=== PATIENT | male | born 1955 | race Caucasian/White ===

== ENCOUNTER 2025-02-21 07:22 | Outpatient (AMB) | payer MEDICARE, OTHER, SELFPAY ==
--- OUTSIDE RECORDS SUMMARY | 2025-02-21 07:24 | XMS_ITS ---
Author Name [facility] Organization Unknown Care Team Organization Name Specialty Phone Email Start Date End Da te [facility] BRIANA GOLDEN Primary Care 02/23/2023 10/31/19 24
--- OUTSIDE RECORDS SUMMARY | 2025-02-21 07:24 | XMS_ITS | Clinical Summary ---
Author Organization [facility] Address [address] [place] [address] Phone Care Team Providers Care Grinder Setup Operator Name Role Phone Isadora Wayne Primary Care Provider + Allergies No known active allergies Medications diclofenac (VOLTAREN) 1 % topical gel Apply 2 g topically 3 (three) times a day if needed (left shoulder pain). 4 Active cholecalciferol (VITAMIN D-3) 50 mcg (2,000 unit) capsule Take 1 capsule (2,000 Units total) by mouth 1 (one) time each day. 4 Active VITAMIN B COMPLEX ORAL Take 1 tablet by mouth 1 (one) time each day. Patient switched from B12 to B Compled Active miscellaneous medical supply misc Inhale 1 Units into the lungs at bedtime. Active polyethylene glycol (MIRALAX) 17 gram packet MIX 1 PACKET IN 8 OUNCES OF LIQUID AND DRINK ONCE DAILY. 6 Active acetaminophen (TYLENOL) 500 mg tablet Take 2 tablets (1,000 mg total) by mouth at bedtime as needed. Active gabapentin (NEURONTIN) 300 mg capsule Take 1 capsule (300 mg total) by mouth 3 (three) times a day. Take 1-3 caps nightly as needed 90 capsule 3 5 Active acyclovir (ZOVIRAX) 400 mg tabletIndications :Oral herpes Take 1 tablet (400 mg total) by mouth every 8 (eight) hours. 15 tablet 5 Active dilTIAZem CD (CARDIZEM CD) 120 mg 24 hr capsule TAKE 1 TABLET BY MOUTH DAILY 90 capsule 1 5 Active coenzyme Q-10 30 mg capsuleIndication s:Atrial fibrillation, unspecified type (CMS/HCC V24, CMS/HCC V28),Paroxysmal atrial fibrillation (CMS/HCC V24, CMS/HCC V28) Take 1 capsule (30 mg total) by mouth 1 (one) time each day. Active magnesium oxide (MAG-OX) 400 mg magnesium tabletIndications :Atrial fibrillation, unspecified type (CMS/HCC V24, CMS/HCC V28),Paroxysmal atrial fibrillation (CMS/HCC V24, CMS/HCC V28) Take 1 tablet (400 mg total) by mouth 1 (one) time each day. Active Active Problems Problem Noted Date Diagnosed Date Spinal stenosis, lumbar region with neurogenic c laudication 02/13/2024 Vitamin B 12 deficiency 09/04/2022 Vitamin D deficiency 09/04/2022 Bradycardia 08/17/2021 SOB (shortness of breath) 08/17/2021 Neurogenic claudication 05/18/2018 Pulmonary nodules 12/14/2017 Allergic rhinitis 07/05/2016 Hypertension 07/05/2016 LESTER (obstructive sleep apnea) 07/05/2016 Paroxysmal atrial fibrillation 07/05/2016 Assessment & Plan (12/27/2024 11:00 PM EDT): Orders: ECG 12 lead Thyroid nodule 07/05/2016 Overview (02/13/2024): thyroid US 02/04/20 stable nodule unchanged compared 2016 Diverticulosis 01/21/2016 Internal hemorrhoids 01/21/2016 Encounters Date Type Department Care Team Description 12/26/2024 2:45 PM EDT Office Visit [facility] [address] [place] [address] Shaneka Diaz MD Atrial fibrillation, unspecified type (CMS/HCC V24, CMS/HCC V28) (Primary Dx); Paroxysmal atrial fibrillation (CMS/HCC V24, CMS/HCC V28) from Last 3 Months Immunizations Immunization Administration Dates Next Due Pneumococcal conjugate 20 va lent (Prevnar 20, PCV 20) 2mo and older 03/05/2022 Surgical History Surgery Date Site/Laterality Comments LUMBAR LAMINECTOMY 2016 PROCEDURE: HISTORICAL LUMB LAMINECTOMY; COMMENT: Dr. Cee NECK SURGERY -2010 PROCEDURE: HISTORICAL NECK SURGERY; COMMENT: Dr. Estes APPENDECTOMY PROCEDURE: HISTORICAL APPENDECTOMY HERNIA REPAIR Right PROCEDURE: HISTORICAL HERNIA REPAIR/ING Medical History Medical History Date Comments Allergic rhinitis 07/05/2016 DX:Allergic rh initis Diverticulosis 01/21/2016 DX:Diverticulosi s Hypertension 07/05/2016 DX:Hypertension Internal hemorrhoids 01/21/2016 DX:Internal hemorrhoids Obstructive sleep apnea 07/05/2016 DX:Obstr uctive sleep apnea Paroxysmal atrial fibrillati on (CMS/HCC V24, CMS/HCC V28) 07/05/2016 DX:Paroxysmal atrial fibril lation (HCC) Pulmonary nodules 12/14/2017 DX:Pulmonary n odules Thyroid nodule 07/05/2016 DX:Thyroid nodul e; COMMENT: thyroid US 02/04/20 stable nodule unchanged compared 2015 Spinal stenosis, lumbar estelita on with neurogenic claudication DX:Spinal stenosis, lumbar r egion with neurogenic claudication Vitamin D deficiency DX:Vitamin D deficiency Vitamin B 12 deficiency DX:Vitam in B 12 deficiency Family History Medical History Relation Name Comments Other: squamous cancer Father Heart failure Mother Relation Name Status Comments Brother 1 Alive Brother 2 Alive Brother 3 Alive Father Mother Social History Tobacco Use Types Packs/Day Years Used Date Smoking Tobacco: Former Smokeless Tobacco: Never Alcohol Use Standard Drinks/Week Comments Yes 0 (1 standard drink = 0.6 oz pur e alcohol) Housing Instability Answer Date Recorde d Are you worried that in the next 2 months you may not have stable housing? No 04/10/2024 Food Access & Nutrition Answer Date Rec orded Do you have access to a vari ety of food including fruits and vegetables? Yes 04/10/2024 Access to Healthcare Answer Date Record ed Within the last 3 months, сергей sam many times did you visit the emergency department for your medical care? 0 04/10/2024 Health Literacy Answer Date Recorded How often do you need to hav e someone help you when you read instructions, pamphlets, or other written material from your doctor or pharmacy? Never 04/10/2024 Caregiver: How often do you need to have someone help you when you read instructions, pamphlets, or other written material from your doctor or pharmacy? Not on file 04/10/2024 Financial Risk Answer Date Recorded How hard is it for you to pa y for the very basics like food, housing, medical care, and air conditioning / heating? Not very hard 04/10/2024 Transportation Answer Date Recorded Has the lack of transportati on kept you from meetings, work, or from getting things needed for daily living? No Has the lack of transportati on kept you from medical appointments or from getting medications? No 04/10/2024 Social Isolation Answer Date Recorded How often do you feel lonely or isolated from ose around you? Never 04/10/2024 Food Risk Answer Date Recorded Within the past 12 months we worried whether our food would run out before we got money to buy more. Never true 04/10/2024 Within the past 12 months th e food we bought just didn't last and we didn't have money to get more. Never true 04/10/2024 Dependent Care Answer Date Recorded Do you need help finding or paying for care for your loved ones. For example, child psychologist or elderly care for an older adult? No 04/10/2024 Education Answer Date Recorded Do you think completing more education or training, like finishing a GED, going to college, or learning a trade, would be helpful for you? No 04/10/2024 Employment and Income Answer Date Recor ded During the last four weeks, have you been actively looking for work? No 04/10/2024 Living Situation Answer Date Recorded What is your living situation? Unrecognized valu e 04/10/2024 Sex and Gender Information Value Date Recorded Sex Assigned at Not on file Legal Sex Male 4:58 AM EST Gender Identity Not on file Sexual Orientation Not on file Last Filed Vital Signs Vital Sign Reading Time Taken Comments Blood Pressure 120/62 12/26/2024 3:07 PM EDT Pulse 53 12/26/2024 3:07 PM EDT Temperature 36.6 C (97.8 F) 10/29/2024 9:23 AM EDT Respiratory Rate - - Oxygen Saturation 96% 12/26/2024 3:07 PM EDT Inhaled Oxygen Concentration - - Weight 90.7 kg (200 lb) 12/26/2024 3:07 PM EDT Height 193 cm (6' 4 ) 12/26/2024 3:07 PM EDT Body Mass Index 24.34 12/26/2024 3:07 PM EDT Plan of Treatment Upcoming Encounters Date Type Department Care Team (Late st Contact Info) Description 05/02/2025 9:00 AM EST Office Visit Internal Medicine - [place] [address] [place] [address] Isadora Wayne, PA [address] [place] [address] Health Maintenance Due Date Last Done Comments Colorectal Cancer Screening: Colonoscopy 1955 Abdominal Aortic Aneurysm (AAA) Screen 02/20/2022 Falls Risk Assessment 02/20/2022 Hepatitis C Screening 02/20/2022 Medicare Annual Wellness Visit 02/20/2022 COVID-19 Vaccine ( season) 2024 11/28/2023, 02/19/2023, 12/21/2021, Additional history exists Influenza Vaccine (#1) 2024 , 02/19/2023, 12/21/2021, Additional history exists Social Influencers of Health Screening 04/10/2025 04/10/2024 Hypertension/CHF/CAD Annual BMP Blood Test 10/29/2025 10/29/2024, 04/16/2024, 04/11/2023 Cholesterol Screening (Lipid Panel) 04/16/2029 04/16/2024, 04/11/2023 DTaP,Tdap,and Td Vaccines (3 - Td or Tdap) 05/17/2029 05/18/2019, 01/13/2014 RSV Immunization Adult Patients (1 - 1-dose 75+ series) 2029 Zoster Vaccines Completed 10/03/2020, 07/31/2020 Pneumococcal Vaccine: 50+ Years Completed 03/05/2022 Depression Screening Completed 04/10/2024 HIB Vaccines Aged Out No longer eligi ble based on patient's age to complete this topic HPV Vaccines Aged Out No longer eligi ble based on patient's age to complete this topic Hepatitis A Vaccines Aged Out No long er eligible based on patient's age to complete this topic Hepatitis B Vaccines Aged Out No long er eligible based on patient's age to complete this topic IPV Vaccines Aged Out No longer eligi ble based on patient's age to complete this topic MMR Vaccines Aged Out No longer eligi ble based on patient's age to complete this topic Meningococcal ACWY Vaccine Aged Out N o longer eligible based on patient's age to complete this topic Meningococcal B Vaccine Aged Out No l onger eligible based on patient's age to complete this topic RSV Immunization Patients Under 20 months Aged Out No longer eligible based on patient's age to complete this topic Varicella Vaccines Aged Out No longer eligible based on patient's age to complete this topic Procedures Procedure Name Priority Date/Time Associated Diagnosis Comments ECG 12-LEAD Routine 12/26/2024 3:12 PM EDT Atrial fibrillation, unspecified type (CMS/HCC V24, CMS/HCC V28) Paroxysmal atrial fibrillation (CMS/HCC V24, CMS/HCC V28) COMPREHENSIVE METABOLIC PANEL Routine 10/29/2024 9:52 AM EDT Primary hypertension LIPID PANEL WITH REFLEX TO DIRECT LDL Routine 04/16/2024 3:44 PM EST Routine physical examination from Last 3 Months or Most Recently Relevant to Health Maintenance Results * ECG 12 lead (12/26/2024 3:12 PM EDT) Ventricular Rate ECG 53 BPM GEMUSE Atrial Rate 53 BPM GEMUSE P-R Interval 180 ms GEMUSE QRS Duration 100 ms GEMUSE Q-T Interval 438 ms GEMUSE QTc 410 ms GEMUSE P Wave [place] 62 degrees GEMUSE R [place] 44 degrees GEMUSE T [place] 57 degrees GEMUSE ECG Interpretation Sinus bradycardia When compared with ECG of 03-APR-2021 16:52, No significant change was found Confirmed by MARIA GUADALUPE DIAZ ([id number]) on 12/27/2024 9:52:44 PM GEMUSE 12/26/2024 3:12 PM EDT 12/27/2024 9:52 PM EDT us Shaneka Diaz MD ECG ORDERABLES Final Resu lt GEMUSE * Comprehensive metabolic panel (10/29/2024 9:52 AM EDT) Sodium 141 133 - 145 mmol/L LAB CHEMISTRY METHOD 10/29/2024 5:01 PM [facility] Potassium 4.2 3.5 - 5.5 mmol/L LAB CHEMISTRY METHOD 10/29/2024 5:01 PM [facility] Chloride 108 96 - 110 mmol/L LAB CHEMISTRY METHOD 10/29/2024 5:01 PM [facility] CO2 30 21 - 32 mmol/L LAB CHEMISTRY METHOD 10/29/2024 5:01 PM [facility] Anion Gap 3 3 - 11 LAB CHEMISTRY METHOD 10/29/2024 5:01 PM [facility] Glucose 90 70 - 100 mg/dL LAB CHEMISTRY METHOD 10/29/2024 5:01 PM [facility] BUN 21 5 - 25 mg/dL LAB CHEMISTRY METHOD 10/29/2024 5:01 PM [facility] Creatinine 1.00 0.70 - 1.30 mg/dL LAB CHEMISTRY METHOD 10/29/2024 5:01 PM [facility] eGFR 81 >=60 mL/min/1. 73m2 LAB CHEMISTRY METHOD 10/29/2024 5:01 PM [facility] Comment:Calculation based on the Chronic Kidney Disease Epidemiology Collaboration (CKD-EPI) equation refit without adjustment for race. BUN/Creatinine Ratio 21.0 LAB CHEMISTRY METHOD 10/29/2024 5:01 PM [facility] Calcium 9.0 8.5 - 10.5 mg/dL LAB CHEMISTRY METHOD 10/29/2024 5:01 PM [facility] AST (SGOT) 35 10 - 42 unit/L LAB CHE[facility]STRY [facility] ALT (SGPT[facility] 36 10 - 60 unit/L LAB CHEMISTRY METHOD 10/29/2024 5:01 PM EDT [facility] Alkaline Phosphatase 75 42 - 121 unit/L LAB CHE[facility]STRY [facility] Total Protein 6.4 6.0 - 8.0 g/dL LAB CHEMISTRY METHOD [facility] Albumin 3.9 3.2 - 5.0 g/dL LAB CHEMISTRY METHOD 10/29/2024 5:01 PM [facility] Total Bilirubin 0.8 0.0 - 1.4 mg/dL LAB CHEMISTRY METHOD 10/29/2024 5:01 PM [facility] Blood Venous blood specimen / Unknown Venipuncture / Unknown 10/29/2024 9:52 AM EDT 10/29/2024 9:52 AM EDT us Isadora KEBEDE LAB BLOOD ORDERABLES Fin al Result [facility] [address] [place] [address], * Lipid panel with reflex to direct LDL (04/16/2024 3:44 PM EST) Cholesterol 171 0 - 200 mg/dL LAB CHEMISTRY METHOD 04/16/2024 7:09 PM [facility] Triglycerides 57 0 - 150 mg/dL LAB CHEMISTRY METHOD 04/16/2024 7:09 PM [facility] HDL 74 >=40 mg/dL LAB CHEMISTRY METHOD 04/16/2024 7:09 PM [facility] LDL Calculated 86 0 - 100 mg/dL LAB CHEMISTRY METHOD 04/16/2024 7:09 PM [facility] VLDL Cholesterol [place] 11.4 mg/dL LAB CHEMISTRY METHOD 04/16/2024 7:09 PM EST [facility] Non HDL Chol. (LDL+VLDL) 97 <145 mg/dL LAB CHEMISTRY METHOD 04/16/2024 7:09 PM EST [facility] Chol/HDL Ratio 2.3 0.0 - 4.4 LAB CHEMISTRY METHOD 04/16/2024 7:09 PM EST [facility] Blood Venous blood specimen / Unknown Venipuncture / Unknown 04/16/2024 3:44 PM EST 04/16/2024 3:44 PM EST Isadora KEBEDE LAB BLOOD ORDERABLES Fin al Result [facility] [address] [place] [address], from Last 3 Months or Most Recently Relevant to Health Maintenance Insurance [facility] [place] [id number] Care Teams Grinder Setup Operator Relationship Specialty Start Date End Date Isadora Wayne PA [address] [address] PCP - General Primary Care 04/16/24
--- OUTSIDE RECORDS SUMMARY | 2025-02-21 07:24 | XMS_ITS | Patient Health Record ---
Author [facility] Address [address] [place] [address] Care Team Providers Care Demo Specialist Name Role Phone Ondina GONZALEZ, Vikas Primary Care Provider Unavaila Vasile Martin Unavailable [phone] Reason For Referral No Information Medications Medication SIG (Take, Route, Fr equency, Duration) Notes Start Date End Date Status Cartia XT 180 MG 1 capsule Orally Once a day Active Social History Tobacco Use: Social History Observation Description Date Details (start date - stop date) Never Smoker NA - NA Tobacco Use/Smoking Question Answer Notes Are you a: nonsmoker Additional Findings: Tobacco Non-User Current no n-smoker Alcohol Screen Question Answer Notes Did you have a drink contain ing alcohol in the past year? Yes How often did you have a dri nk containing alcohol in the past year? 2 to 4 times a month (2 points) How many drinks did you have on a typical day when you were drinking in the past year? 1 or 2 drinks (0 point) How often did you have 6 or more drinks on one occasion in the past year? Never (0 point) Points 2 Interpretation Negative Tobacco use other than smoking: Question Answer Notes Are you an other tobacco user? No Problems Problem Type SNOMED Code ICD Code Onset Dates Problem Status W/U Status Risk Notes Problem Localized, primary osteoarthritis of the ankle and/or foot (424476838) Primary osteoarthrit is, left ankle and foot (M19.072) Active confirmed Problem Localized, primary osteoarthritis of the ankle and/or foot (383389063) Primary osteoarthrit is, right ankle and foot (M19.071) Active confirmed Plan Of Treatment No Information Insurance Providers Payer Name Payer Address Payer Phone Subscriber Number Group Number Insured Name Patient Relationship to Insured Coverage Start Date Coverage End Date [facility] [address] [facility] [place], [place] [address] [phone] [id number] Andre Cornell Self - patient is the insured Medical (General) History Medical History History ICD Code Back,Hip,and Knee pain Chicken pox Measles Numbness Raynauds syndrome Surgical History Surgery Date(Month/Year) Oral 2015 appendectomy 2015 discectomy 2011 hernia 2002
--- OUTSIDE RECORDS SUMMARY | 2025-02-21 07:24 | XMS_ITS | Clinical Summary ---
Author Organization [facility] Address [address] [facility] [address] [place] [address] Care Team Providers Care Program Director/Morning Show Host Name Role Phone No, Pcp MD Primary Care Provider Unavailabl e Allergies No known active allergies Medications No known medications Active Problems No known active problems Social History Tobacco Use Types Packs/Day Years Used Date Smoking Tobacco: Former Cigarettes 1.5 43 0 03/14/1967 - 03/14/2010 Smokeless Tobacco: Never Sex and Gender Information Value Date Recorded Sex Assigned at Not on file Legal Sex Male 6:06 AM EST Gender Identity Not on file Sexual Orientation Not on file Last Filed Vital Signs Vital Sign Reading Time Taken Comments Blood Pressure 148/74 05/26/2021 11:30 AM EDT Pulse 73 05/26/2021 11:30 AM EDT Temperature - - Respiratory Rate 16 02/09/2021 8:00 AM EST Oxygen Saturation - - Inhaled Oxygen Concentration - - Weight 99.8 kg (220 lb) 07/13/2021 2:52 PM EDT Height 193 cm (6' 4 ) 07/13/2021 2:52 PM EDT Body Mass Index 26.78 07/13/2021 2:52 PM EDT Plan of Treatment Not on file Insurance [facility] Care Teams Program Director/Morning Show Host Relationship Specialty Start Date End Date No, Pcp, PCP - General Pediatrics 07/13/21
[2025-02-21 07:30] VITALS: BMI 25.6
--- NOTE | 2025-02-21 07:30 | A.PHYSOV ---
Vital Signs 02/21/25 07:30 Height 6 ft 4 in Weight 210 lb BMI 25.6 Intake Visit Reasons: F/U after injection 01/04/2025 Intake Note: patient is a 69 year old male in office today for a follow up after L5-S1 interlaminar epidural injection. Patient feeling better after injection Enterprise Application Architect Required: No Allergies No Known Allergies Allergy (Verified 02/21/25 07:30) HPI Comments Details: History of Present Illness The patient is a 69 year old male presenting with a follow-up visit for chronic lower back pain. He has a history of an L4-L5 fusion in 2023, and a subsequent lumbar sacral spine MRI showed severe stenosis from scar tissue at this level. His pain has responded very well to L5-S1 epidural injections, with the first procedure on July 30, 2022, a repeat on June 17, 2023, and the most recent on January 04, 2025. He reports that the injections work for a long time, sometimes over a year. He has been experiencing some muscle cramping at night, for which he supplements with magnesium, CoQ10, and a vitamin B complex. He also takes gabapentin at bedtime. Pain Description - Location: Lower back. - Relieving Factors: Pain is relieved by L5-S1 epidural injections. Results - Imaging: Lumbar sacral spine MRI was consistent with severe stenosis from scar tissue at the L4-L5 level. [facility] Medical History (Updated 02/21/25 @ 07:45 by Ariel Bird DO) Spinal stenosis, lumbar region with neurogenic claudication Lumbar radiculitis Post laminectomy syndrome Surgical History (Updated 02/16/25 @ 11:58 by Medina Balbuena MA) History of appendectomy History of hernia repair History of neck surgery S/P lumbar fusion Social History (Updated 02/21/25 @ 07:32 by Medina Balbuena MA) Alcohol intake: current Alcohol intake frequency: 3 or more drinks per day Patient Tobacco Use Status: Former Tobacco user Current occupational status: employed 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 - Reports muscle cramping at night. - General: Denies any new issues or concerns. Physical Exam Exam Exam: Physical Exam Patient appears to be in no acute distress, appropriately conversant oriented. He ambulates without antalgia. Lumbar extension was restricted. Neurological examination was nonfocal. He demonstrated no upper motor neuron signs. The SI provocative maneuvers were negative. Vital Signs: BMI result Body Mass Index 25.6 Assessment & Plan Assessment & Plan (1) Post laminectomy syndrome: Code(s): M96.1 - Postlaminectomy syndrome, not elsewhere classified Category: Medical (2) Lumbar radiculitis: Code(s): M54.16 - Radiculopathy, lumbar region Category: Medical (3) Spinal stenosis, lumbar region with neurogenic claudication: Code(s): M48.062 - Spinal stenosis, lumbar region with neurogenic claudication Category: Medical Plan Pain Management - Analgesia: The patient reports good relief from L5-S1 epidural injections, which last for extended periods, sometimes over a year. - He also takes gabapentin at bedtime. - Adverse Effects: He reports some muscle cramping at night. Plan Patient was informed and verbally consented to the use of an ambient scribe for clinic note documentation during this visit. 1. Low back pain, unspecified M54.50 The patient's chronic lower back pain is secondary to post-surgical changes and severe stenosis at L4-L5. He has responded very well to L5-S1 epidural injections, with the most recent procedure providing good relief. The plan is to continue with these injections on an as-needed basis, as they provide long-lasting benefit. 2. Cramp and spasm R25.2 The patient reports muscle cramping at night. He is currently managing this with gabapentin at bedtime and supplements including magnesium, CoQ10, and vitamin B complex. No changes to this regimen were discussed. Discussion Notes I reviewed the patient's history of chronic lower back pain following his L4-L5 fusion in 2023. We discussed that his MRI findings are consistent with severe stenosis from scar tissue. We confirmed that the recent L5-S1 epidural injection provided good relief, similar to previous treatments, and that these injections have a long-lasting effect for him. We agreed to continue with this management plan, with injections to be administered on an as-needed basis. Follow-up appointments will be scheduled as needed. Patient Instructions - Your most recent back injection helped your pain, which is great news. - Continue taking your gabapentin and supplements for muscle cramping as you have been. - We will continue to treat your back pain with injections whenever it becomes difficult to manage. - Please call us to schedule a follow-up appointment when you feel you need another injection. Coding Level of Care Code Est Pt Level 3 (45359) Add On Problem Visit Only Diagnoses Post laminectomy syndrome M96.1 Lumbar radiculitis M54.16 Spinal stenosis, lumbar region with neurogenic claudication M48.062
== END 2025-02-21 07:39 | disposition home or self-care (01) ==
LOC: HO.HPHYS 07:22
PROVIDERS: PCP Physician Assistant; Visit Provider Physical Medicine & Rehabilitation
DX: M96.1 Postlaminectomy syndrome, not elsewhere classified (principal); M54.16 Radiculopathy, lumbar region; M48.062 Spinal stenosis, lumbar region with neurogenic claudication
CPT/HCPCS: 99213; G2211

== ENCOUNTER → 2025-02-21 07:22 | Outpatient (BNVA) | payer MEDICARE, OTHER, SELFPAY | PROVIDERS: PCP Physician Assistant; Visit Provider Physical Medicine & Rehabilitation | DX: M96.1 Postlaminectomy syndrome, not elsewhere classified (principal); M54.16 Radiculopathy, lumbar region; M48.062 Spinal stenosis, lumbar region with neurogenic claudication; M54.50 Low back pain, unspecified; R25.2 Cramp and spasm | CPT/HCPCS: 99212 ==